=== PATIENT | female | born 1980 | race Caucasian/White ===

== ENCOUNTER 2017-03-21 03:53 | Inpatient (IN) | payer OTHER ==
[~2017-03-21] VITALS: Ht 170.2 cm; Wt 125.0 kg
[~2017-03-21 03:53] MED LIST: ALBUTEROL17 GM IH; NAPROSYN500 MG PO; SKELAXIN400 M1 PO; TYLENOL WITH C1 EACH PO
[2017-03-21 05:51] LABS: BASOPHIL COUNT 0.1 K/uL (0-0.1); EOSINOPHIL (%) 0.2 % (0-5); HEMATOCRIT 44.9 % (36.0-46.0); IMMATURE GRANULOCYTE (%) 0.4 % (0.0-0.7); IMMATURE GRANULOCYTE COUNT 0.1 K/uL; INSTRUMENT ABS NEUTROPHIL CT 9.3 K/uL; LYMPHOCYTE COUNT 2.6 K/uL (1.0-2.8); MCH 30.2 PG (29.0-34.0); MCHC 33.9 G/DL (30.0-36.0); MCV 89.3 FL (83-99); MEAN PLAT.VOLUME 11.1 uM^3 (9.5-12.4); MONOCYTE (%) 6.3 % (3-12); MONOCYTE COUNT 0.8 K/uL (0-0.8); NEUTROPHIL (%) 72.6 % (45-76); NEUTROPHIL COUNT 9.3 K/uL (1.8-6.4); PLATELET COUNT 350 K/uL (156-360); RBC DIS.WIDTH-CV 13.6 % (11.8-14.6); RBC DIS.WIDTH-SD 44.6 % (39-53); RED BLOOD COUNT 5.03 M/uL (3.80-5.20); WHITE BLOOD COUNT 12.8 K/uL (4.1-10.2)
[2017-03-21 05:52] LABS: CHLORIDE 104 mEq/L (99-109); POTASSIUM 3.6 mEq/L (3.7-5.4); SODIUM 138 mEq/L (136-147)
[2017-03-21 05:54] LABS: GLUCOSE 131 mg/dL (70-99)
[2017-03-21 05:55] LABS: ANION GAP 13 MEQ/L (2-14)
[2017-03-21 05:57] LABS: GFR ESTIMATE (CALCULATED) > 59 mL/min/; SERUM ETHYL ALCOHOL < 10 mg/dL
[2017-03-21 05:58] LABS: UREA NITROGEN (BUN) 6 mg/dL (9-23)
[2017-03-21 13:15] VITALS: BP 112/65
[2017-03-21 13:22] VITALS: BP 112/65
[2017-03-21 13:42] LABS: ADD MEDTOX COMMENT Y; AMPHETAMINE NEGATIVE (500 ng/mL); BARBITURATES NEGATIVE (200 ng/mL); BENZODIAZEPINES NEGATIVE (150 ng/mL); COCAINE NEGATIVE (150 ng/mL); INTERNAL CONTROLS VALID? YES; METHADONE NEGATIVE (200 ng/mL); METHAMPHETAMINE NEGATIVE (500 ng/mL); OPIATES (MORPHINE) NEGATIVE (100 ng/mL); OXYCODONE NEGATIVE (100 ng/mL); PHENCYCLIDINE NEGATIVE (25 ng/mL); PROPOXYPHENE NEGATIVE (300 ng/mL); THC CANNABINOIDS PRESUMPTIVE POSITIVE (50 ng/mL); TRICYCLIC ANTIDEPRESSANTS NEGATIVE (300 ng/mL)
[2017-03-22 07:35] VITALS: BP 106/61
[2017-03-22 15:24] VITALS: BP 98/66
[2017-03-23 07:52] VITALS: BP 120/71
[2017-03-23 15:55] VITALS: BP 114/78
[2017-03-24 07:16] VITALS: BP 111/81
[2017-03-24 16:18] VITALS: BP 109/77
[2017-03-25 07:26] VITALS: BP 107/52
[2017-03-25] MEDS ORDERED: LATUDA40 MG PO (13:21)
[2017-03-25] MEDS ORDERED: KLONOPIN1 MG PO (13:22)
[2017-03-25] MEDS ORDERED: LEVO-T150 MCG PO ×2 (13:25→13:26)
[2017-03-25] MEDS ORDERED: ZOLPIDEM TARTRAT5 MG PO (13:25)
== END 2017-03-25 14:20 | disposition home or self-care (01) | DRG 885 ==
LOC: EME 03:53 → 1WEST 11:18 → EDOF 11:18 → 1WEST 13:00
PROVIDERS: Emergency Medicine
DX: F31.10 Bipolar disorder, current episode manic without psychotic features, unspecified (principal); F12.90 Cannabis use, unspecified, uncomplicated; J45.909 Unspecified asthma, uncomplicated; F51.05 Insomnia due to other mental disorder; F17.200 Nicotine dependence, unspecified, uncomplicated; Z72.820 Sleep deprivation
CPT/HCPCS: 80048; 84439; 84443; 84999; 85025; 90837; 97150 GO; 99202; 99281; 99285; G0480; J1630; J2060

== ENCOUNTER 2017-04-11 00:21 | Emergency (ER) | payer OTHER ==
[~2017-04-11] VITALS: Ht 170.2 cm; Wt 53.4 kg
[~2017-04-11 00:21] MED LIST changes: +KLONOPIN1 MG PO; +LATUDA40 MG PO; +LEVO-T150 MCG PO; +ZOLPIDEM TARTRAT5 MG PO
[2017-04-11 01:23] LABS: HEMATOCRIT 40.6 % (36.0-46.0); MCH 29.8 PG (29.0-34.0); MCV 90.2 FL (83-99); RBC DIS.WIDTH-CV 14.1 % (11.8-14.6); RBC DIS.WIDTH-SD 46.5 % (39-53); WHITE BLOOD COUNT 8.7 K/uL (4.1-10.2)
[2017-04-11 01:31] LABS: ADD MIUA? YES; BILIRUBIN NEGATIVE; BLOOD LARGE; COLOR AMBER ((YELLOW)); GLUCOSE (STRIP) NEGATIVE; KETONES NEGATIVE; LEUKOCYTES NEGATIVE; NITRITE NEGATIVE; PROTEIN (STRIP) 30
[2017-04-11 01:37] LABS: CHLORIDE 107 mEq/L (99-109); SODIUM 140 mEq/L (136-147)
[2017-04-11 01:38] LABS: GLUCOSE 94 mg/dL (70-99)
[2017-04-11 01:39] LABS: ADD MEDTOX COMMENT Y; AMPHETAMINE NEGATIVE (500 ng/mL); BARBITURATES NEGATIVE (200 ng/mL); BENZODIAZEPINES NEGATIVE (150 ng/mL); COCAINE NEGATIVE (150 ng/mL); INTERNAL CONTROLS VALID? YES; METHADONE NEGATIVE (200 ng/mL); METHAMPHETAMINE NEGATIVE (500 ng/mL); OPIATES (MORPHINE) NEGATIVE (100 ng/mL); OXYCODONE NEGATIVE (100 ng/mL); PHENCYCLIDINE NEGATIVE (25 ng/mL); PROPOXYPHENE NEGATIVE (300 ng/mL); THC CANNABINOIDS PRESUMPTIVE POSITIVE (50 ng/mL); TRICYCLIC ANTIDEPRESSANTS NEGATIVE (300 ng/mL)
[2017-04-11 01:40] LABS: ANION GAP 8 MEQ/L (2-14)
[2017-04-11 01:42] LABS: GFR ESTIMATE (CALCULATED) > 59 mL/min/; SERUM ETHYL ALCOHOL < 10 mg/dL
[2017-04-11 01:44] LABS: UREA NITROGEN (BUN) 8 mg/dL (9-23)
[2017-04-11 01:45] LABS: SALICYLATE < 5.0 MG/DL (15-30)
[2017-04-11 01:52] LABS: QUANTITATIVE HCG < 4.0 MIU/ML
[2017-04-11 01:58] LABS: BACTERIA 2+ /HPF; CASTS PRESENT /LPF; CRYSTALS PRESENT; EPITHELIAL CELLS 2+ /HPF; HYALINE CASTS 0-5 /LPF; MUCUS 3+ /LPF; RED BLOOD CELLS 30-40 /HPF (0-5); UCUL ADDED? NO; WHITE BLOOD CELLS 0-5 /HPF (0-5)
[2017-04-11 01:59] LABS: CALCIUM OXALATE CRYSTALS RARE /HPF
[2017-04-11 02:14] LABS: MEAN PLAT.VOLUME 10.6 uM^3 (9.5-12.4); PLAT.SUFFICIENCY ADEQUATE; PLATELET COUNT 266 K/uL (156-360)
[2017-04-11 03:18] VITALS: BP 111/72
== END 2017-04-11 03:19 | disposition home or self-care (01) ==
LOC: EME 00:21
PROVIDERS: Emergency Medicine
DX: F31.13 Bipolar disorder, current episode manic without psychotic features, severe (principal); J45.909 Unspecified asthma, uncomplicated; F17.200 Nicotine dependence, unspecified, uncomplicated
CPT/HCPCS: 80048; 81003; 84702; 84999; 85027; 90837; 99281; 99285; G0480

== ENCOUNTER 2017-05-09 09:40 | Emergency (ER) | payer OTHER ==
[~2017-05-09] VITALS: Ht 170.2 cm; Wt 52.9 kg
[2017-05-09 10:27] LABS: BASOPHIL COUNT 0.1 K/uL (0-0.1); EOSINOPHIL (%) 1.3 % (0-5); EOSINOPHIL COUNT 0.1 K/uL (0-0.3); HEMATOCRIT 44.7 % (36.0-46.0); IMMATURE GRANULOCYTE (%) 0.4 % (0.0-0.7); INSTRUMENT ABS NEUTROPHIL CT 6.5 K/uL; LYMPHOCYTE COUNT 3.4 K/uL (1.0-2.8); MCH 30.3 PG (29.0-34.0); MEAN PLAT.VOLUME 10.5 uM^3 (9.5-12.4); MONOCYTE (%) 5.8 % (3-12); MONOCYTE COUNT 0.6 K/uL (0-0.8); NEUTROPHIL (%) 60.2 % (45-76); NEUTROPHIL COUNT 6.5 K/uL (1.8-6.4); PLATELET COUNT 359 K/uL (156-360); RBC DIS.WIDTH-SD 45.6 % (39-53); RED BLOOD COUNT 5.02 M/uL (3.80-5.20); WHITE BLOOD COUNT 10.8 K/uL (4.1-10.2)
[2017-05-09 10:33] LABS: CHLORIDE 104 mEq/L (99-109); POTASSIUM 3.6 mEq/L (3.7-5.4); SODIUM 139 mEq/L (136-147)
[2017-05-09 10:36] LABS: GLUCOSE 82 mg/dL (70-99)
[2017-05-09 10:37] LABS: ANION GAP 12 MEQ/L (2-14); TOTAL BILIRUBIN 0.3 mg/dL (0.0-1.0)
[2017-05-09 10:38] LABS: SERUM ETHYL ALCOHOL < 10 mg/dL
[2017-05-09 10:39] LABS: ALKALINE PHOSPHATASE 87 IU/L (3-129); GFR ESTIMATE (CALCULATED) > 59 mL/min/
[2017-05-09 10:40] LABS: UREA NITROGEN (BUN) 11 mg/dL (9-23)
[2017-05-09 10:41] LABS: DIRECT BILIRUBIN 0.1 mg/dL (0.0-0.3)
[2017-05-09 10:48] LABS: QUANTITATIVE HCG < 4.0 MIU/ML
[2017-05-09 11:34] LABS: ADD MIUA? YES; BILIRUBIN NEGATIVE; BLOOD MODERATE; COLOR YELLOW ((YELLOW)); GLUCOSE (STRIP) NEGATIVE; KETONES NEGATIVE; LEUKOCYTES MODERATE; NITRITE NEGATIVE; PROTEIN (STRIP) 30; SPECIFIC GRAVITY 1.019 (1.000-1.030); UROBILINOGEN 0.2 MG/DL (0.2-1.0)
[2017-05-09 11:43] LABS: AMPHETAMINE NEGATIVE (500 ng/mL); BARBITURATES NEGATIVE (200 ng/mL); BENZODIAZEPINES NEGATIVE (150 ng/mL); COCAINE NEGATIVE (150 ng/mL); INTERNAL CONTROLS VALID? YES; METHADONE NEGATIVE (200 ng/mL); METHAMPHETAMINE NEGATIVE (500 ng/mL); OPIATES (MORPHINE) NEGATIVE (100 ng/mL); OXYCODONE NEGATIVE (100 ng/mL); PHENCYCLIDINE NEGATIVE (25 ng/mL); PROPOXYPHENE NEGATIVE (300 ng/mL); THC CANNABINOIDS PRESUMPTIVE POSITIVE (50 ng/mL); TRICYCLIC ANTIDEPRESSANTS NEGATIVE (300 ng/mL)
[2017-05-09 11:44] LABS: ADD MEDTOX COMMENT Y
[2017-05-09 11:50] LABS: BACTERIA 3+ /HPF; CASTS NONE SEEN /LPF; CRYSTALS PRESENT; EPITHELIAL CELLS 2+ /HPF; MUCUS RARE /LPF; RED BLOOD CELLS 0-5 /HPF (0-5)
[2017-05-09 11:51] LABS: AMORPHOUS PHOSPHATE CRYSTALS 2+
[2017-05-09 11:52] LABS: OTHER BUDDING YEAST 1+
[2017-05-09] MEDS ORDERED: CIPRO500 MG PO (13:12)
[2017-05-09 13:25] VITALS: BP 156/95
== END 2017-05-09 13:35 | disposition home or self-care (01) ==
LOC: EME → EDBD 09:40 → EME 13:35
PROVIDERS: Emergency Medicine
DX: F12.10 Cannabis abuse, uncomplicated (principal); N39.0 Urinary tract infection, site not specified; F41.0 Panic disorder [episodic paroxysmal anxiety]; J45.909 Unspecified asthma, uncomplicated; Z85.850 Personal history of malignant neoplasm of thyroid; F17.200 Nicotine dependence, unspecified, uncomplicated
CPT/HCPCS: 80048; 80076; 81003; 84702; 84999; 85025; 99281; 99285; G0480; J2060